=== PATIENT | male | born 1950 | race Caucasian/White ===

== ENCOUNTER 2019-05-24 19:46 | Emergency (ER) | payer MEDICARE ==
[2019-05-24] MEDS ORDERED: Morphine 4 MG/ML VIAL ONE ×2 (19:54→20:25)
[2019-05-24] MEDS ORDERED: Ondansetron PF 4 MG/2 ML Vial ONE ×2 (19:54→20:47)
[2019-05-24 20:51] LABS: #Basophils 0.1 thou/uL (0.0-0.2); #Lymphocytes 0.7 thou/uL (1.20-3.40); #Monocytes 0.4 thou/uL (0.11-0.59); #Neutrophils 9.3 thou/uL (1.40-6.50); %Basophils 0.6 % (0.0-1.0); %Lymphocytes 6.5 % (21.0-51.0); %Monocytes 3.4 % (0.0-10.0); %Neutrophils 89.4 % (42.0-75.0); Hemoglobin 13.9 g/dL (14.0-18.0); Mean Corpuscular Hemoglobin 32.2 pg (27.0-31.0); Mean Corpuscular Volume 89.4 fL (78.0-98.0); Mean Platelet Volume 7.3 fL (7.4-10.4); Platelet Count 200 thou/uL (130-400); RBC Distribution Width 11.5 % (11.5-14.5); Red Blood Cell (RBC) Count 4.31 mill/uL (4.70-6.10); White Blood Cell (WBC) Count 10.5 thou/uL (4.8-10.8)
[2019-05-24] MEDS ORDERED: Ketorolac Tromethamine 30 MG/ML VIAL ONE (21:04)
[2019-05-24 21:07] LABS: ALT (SGPT) 19 U/L (8-55); AST (SGOT) 20 U/L (5-34); Albumin 3.9 g/dL (3.4-4.8); Alkaline Phosphatase 90 U/L (40-150); Anion Gap 15 mmol/L (10-20); BUN (Urea Nitrogen) 25 mg/dL (8.4-25.7); Bilirubin, Total 0.8 mg/dL (0.2-1.2); Calc. Creatinine Clearance 0 mL/min (70-130); Calcium 9.2 mg/dL (7.8-10.44); Carbon Dioxide 22 mmol/L (23-31); Chloride 109 mmol/L (98-107); Estimated GFR-MDRD 38; Globulin 3.5 g/dL (2.4-3.5); Glucose 148 mg/dL (80-115); Lipase 24 U/L (8-78); Potassium 4.1 mmol/L (3.5-5.1); Protein, Total 7.4 g/dL (5.8-8.1); Sodium 142 mmol/L (136-145)
--- NOTE | 2019-05-24 21:44 | CT ---
EXAM: Abdomen and pelvic CT scan with contrast: HISTORY: Lower abdominal pain, nausea and vomiting for 4 hours COMPARISON: None FINDINGS: The visualized lung bases are clear. Liver: Unremarkable. Gallbladder:Unremarkable. Pancreas:Unremarkable Spleen:Unremarkable. Adrenal glands:Unremarkable. Kidneys:Dilated left upper renal collecting system with perirenal and periureteral edema is changes a nd fat stranding secondary to an obstructing 0.4 x 0.7 cm distal left ureteral calculus.Small right renal hypodensity statistically a small cyst. Colonic diverticulosis without acute diverticulitis. Mild scoliosis. No CT evidence for acute appendicitis. The urinary bladder is unremarkable. No abscess, adenopathy, or abnormal fluid collection within the abdomen or pelvis. IMPRESSION: Obstructing distal left ureteral calculus with hydroureteronephrosis and perirenal and periureteral f luid and fat stranding. Small fat-containing umbilical hernia and bilateral fat-containing inguinal hernias.
[2019-05-24 22:03] LABS: Bilirubin Negative (Negative); Blood, Urine Moderate (Negative); Clarity Clear (Clear); Glucose, Urine (Dipstick) Negative (Negative); Leukocyte Negative (Negative); Nitrite Negative (Negative); Protein, Urine (Dipstick) 100 mg/dL (Neg-Trace)
[2019-05-24 22:11] LABS: Bacteria/HPF Rare-Few HPF (None Seen); Squamous Epithelial 0-3 HPF (0-3); WBC/HPF 0-3 HPF (0-3)
== END 2019-05-24 23:04 | disposition home or self-care (01) ==
LOC: SCSER 19:46
DX: N13.2 Hydronephrosis with renal and ureteral calculous obstruction (principal)
CPT/HCPCS: 36415; 74177; 80053; 81003; 81015; 83690; 84484; 85025; 93005; 96361; 96374; 96375; 96376; J1885; J2270; J2405

== ENCOUNTER 2019-07-04 21:43 | Emergency (ER) | payer MEDICARE ==
[2019-07-04 22:25] LABS: #Basophils 0.1 thou/uL (0.0-0.2); #Eosinphils 0.1 thou/uL (0.0-0.7); #Lymphocytes 1.7 thou/uL (1.20-3.40); #Monocytes 0.6 thou/uL (0.11-0.59); #Neutrophils 8.4 thou/uL (1.40-6.50); %Basophils 1.1 % (0.0-1.0); %Eosinophils 1.4 % (0.0-10.0); %Lymphocytes 15.1 % (21.0-51.0); %Monocytes 5.6 % (0.0-10.0); %Neutrophils 76.9 % (42.0-75.0); Hemoglobin 14.6 g/dL (14.0-18.0); Mean Corpuscular Hemoglobin 31.2 pg (27.0-31.0); Mean Corpuscular Volume 91.7 fL (78.0-98.0); Mean Platelet Volume 7.2 fL (7.4-10.4); Platelet Count 218 thou/uL (130-400); Red Blood Cell (RBC) Count 4.68 mill/uL (4.70-6.10); White Blood Cell (WBC) Count 10.9 thou/uL (4.8-10.8)
[2019-07-04 22:42] LABS: Bilirubin Small (Negative); Blood, Urine Large (Negative); Clarity Slightly Cloudy (Clear); Glucose, Urine (Dipstick) Negative (Negative); Leukocyte Negative (Negative); Nitrite Negative (Negative); Protein, Urine (Dipstick) 100 mg/dL (Neg-Trace)
[2019-07-04 22:42] LABS: ALT (SGPT) 17 U/L (8-55); AST (SGOT) 19 U/L (5-34); Albumin 4.2 g/dL (3.4-4.8); Alkaline Phosphatase 91 U/L (40-150); Anion Gap 17 mmol/L (10-20); BUN (Urea Nitrogen) 24 mg/dL (8.4-25.7); Bilirubin, Total 0.7 mg/dL (0.2-1.2); Calc. Creatinine Clearance 0 mL/min (70-130); Calcium 9.8 mg/dL (7.8-10.44); Carbon Dioxide 20 mmol/L (23-31); Chloride 107 mmol/L (98-107); Estimated GFR-MDRD 41; Globulin 3.7 g/dL (2.4-3.5); Glucose 113 mg/dL (83-110); Lipase 40 U/L (8-78); Protein, Total 7.9 g/dL (5.8-8.1); Sodium 140 mmol/L (136-145)
[2019-07-04 22:46] LABS: Bacteria/HPF 1+ HPF (None Seen); RBC/HPF 21-50 HPF (0-3); Renal Epithelial 0-3 HPF (None Seen); Squamous Epithelial 0-3 HPF (0-3); WBC/HPF 0-3 HPF (0-3)
--- NOTE | 2019-07-04 23:19 | CT ---
CT Stone Protocol History: Left flank pain Comparison: None. Findings: Lung bases are clear. No pericardial effusion. Left hydroureteronephrosis, moderate, due to an obstructive calculus distal left ureter at the ureter ovesicular junction measuring 3 x 6 mm. Moderate left perinephric stranding. No other calculus within the left renal collecting system. As is the same calculus from the 05/24/2019 CT exam and has n ot advanced. No right hydroureteronephrosis or nephroureterolithiasis. Moderate diverticular disease sigmoid colon without active current inflammation. No acute osseous abnormality. Mild S-shaped scoliosis. Liver, gallbladder, adrenal glands, spleen, pa ncreas have normal noncontrast appearance. Impression: Redemonstration of the partially obstructive left distal ureteral calculus at the uretero vesicular junction measuring 3 x 6 mm with moderate left hydroureteronephrosis.
== END 2019-07-04 23:37 | disposition home or self-care (01) ==
LOC: SCSER 21:43
DX: N13.2 Hydronephrosis with renal and ureteral calculous obstruction (principal)
CPT/HCPCS: 74176; 80053; 81003; 81015; 83605; 83690; 85025; 87086

== ENCOUNTER 2020-11-01 10:30 | Outpatient (CLI) | payer MEDICARE ==
--- NOTE | 2020-11-01 10:55 | SJPRAD ---
PA AND LATERAL VIEWS OF THE CHEST: HISTORY: Shortness of breath. COMPARISON: None FINDINGS: The heart size normal. There are mild hazy opacities bilaterally with mild infiltrate/atelectatic cinthia nge in the left lung base. No pneumothoraces or pleural effusions are seen. There is scoliosis of the spine. IMPRESSION: Possibility of viral pneumonia should be considered.
[2020-11-01 16:41] LABS: #Lymphocytes 0.9 thou/uL (1.20-3.40); #Monocytes 0.6 thou/uL (0.11-0.59); #Neutrophils 4.2 thou/uL (1.40-6.50); %Eosinophils 0.6 % (0.0-10.0); %Monocytes 10.8 % (0.0-10.0); %Neutrophils 73.6 % (42.0-75.0); Hemoglobin 14.7 g/dL (14.0-18.0); Mean Corpuscular HGB CONC 33.1 g/dL (32.0-36.0); Mean Corpuscular Hemoglobin 32.1 pg (27.0-31.0); Mean Platelet Volume 8.6 fL (7.4-10.4); Platelet Count 218 thou/uL (130-400); RBC Distribution Width 11.7 % (11.5-14.5); Red Blood Cell (RBC) Count 4.59 mill/uL (4.70-6.10); White Blood Cell (WBC) Count 5.7 thou/uL (4.8-10.8)
[2020-11-01 17:06] LABS: Anion Gap 14 mmol/L (10-20); BUN (Urea Nitrogen) 21 mg/dL (8.4-25.7); Calc. Creatinine Clearance 0 mL/min (70-130); Calcium 9.3 mg/dL (7.8-10.44); Carbon Dioxide 28 mmol/L (23-31); Chloride 102 mmol/L (98-107); Glucose 106 mg/dL (83-110); Potassium 4.7 mmol/L (3.5-5.1); Sodium 139 mmol/L (136-145)
[2020-11-01 21:50] LABS: SARS-CoV-2 MS2 Positive; SARS-CoV-2 N Gene Positive; SARS-CoV-2 S Gene Positive; SARS-CoV-2 by NAA DETECTED (NotDetected); SARS-CoV-2 orf1ab Positive
== END 2020-11-01 10:31 | disposition home or self-care (01) ==
LOC: SCSRAD 10:30
PROVIDERS: ATTEND Nurse Practitioner Family
DX: U07.1 COVID-19 (principal); R06.02 Shortness of breath; R53.83 Other fatigue
CPT/HCPCS: 80048; 83880; 85025; 87635; U0003

== ENCOUNTER 2021-05-19 08:26 | Outpatient (CLI) | payer MEDICARE ==
[2021-05-19 10:27] LABS: Cardiac Risk 6.3 (Less than 4.5)
== END 2021-05-19 08:27 | disposition home or self-care (01) ==
LOC: SCSRAD 08:26
PROVIDERS: ATTEND Physician Assistant
DX: Z00.00 Encounter for general adult medical examination without abnormal findings (principal); Z12.5 Encounter for screening for malignant neoplasm of prostate; M54.42 Lumbago with sciatica, left side; M79.605 Pain in left leg; M41.9 Scoliosis, unspecified; E78.5 Hyperlipidemia, unspecified; M16.12 Unilateral primary osteoarthritis, left hip; M47.814 Spondylosis without myelopathy or radiculopathy, thoracic region; M47.816 Spondylosis without myelopathy or radiculopathy, lumbar region
CPT/HCPCS: 36415; 72072; 72100; 80061; G0103